=== PATIENT | male | born 1980 | race Caucasian/White ===

== ENCOUNTER 2016-09-29 20:54 | Emergency (ER) | payer MEDICAID ==
[~2016-09-29] VITALS: Ht 182.9 cm; Wt 83.9 kg
--- NOTE | 2016-09-29 21:16 | Emergency Room Report ---
History of Present Illness Time Seen by 2102 Presenting Problem in Triage Pt arrived:Walked Presenting Problem:STARTED WITH A SUPERFICIAL SKIN LESION (BUMP) 2 DAYS AGO TO THE RIGHT KNEE TO SWELLING, REDNESS, TENDERNESS AND DECREASED ROM. 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 N Clinical Suspician of Infection? Y Mental Status: 1 - Regular (Normal Baseline) Sepsis Risk:Low Sepsis Risk Have you (or family members/close friends) recently traveled outside the [place]? N If Yes, where/when: Have you had exposure to infectious disease within the past month? N TB? Other? Specify: Source patient, RN notes reviewed, family, old records Exam Limitations no limitations Comment pt with reddness for a few days and now reddness and effusion rt knee - with no fever or known tick bite and no other jts involved Cardiac Chest Pain Chest pain indicative of cardiac No Timing/Duration this evening Severity moderate ALLERGIES Coded Allergies: MDX - Shellfish (From SHELLFISH (FOOD/DRUG)) (Severe, P-[id number]-[id number]/THROAT 08/15) SHELLFISH (FOOD) (From SHELLFISH (FOOD/DRUG)) (Severe, N-[id number]-QNVD/THROAT 19/02) History Medical History General CAD? No Angina: No LA: No Hypertension? No Hyperlipidemia? No CHF? No DVT? No PE? No COPD? No Asthma? Yes Anemia? No GERD? No Gastric ulcers? No GI Bleed? No Hernia? No Thyroid Problems? No Hypothyroidism? No CVA? No Seizures? No Diabetes? No Renal Insuffiency? No End Stage Renal Disease? No UTI? No Stones? No BPH? No GB Disease: No Asplenia? No Hepatitis? No Sickle Cell Disease? No Arthritis? No Migraines? No Cataracts? No Glaucoma? No MRSA? No HIV? No TB? No Anxiety? No Depression? No Cancer? No Site: N More? No Immunization Hx DT/Tetanus 5-10 Years Ago Surgical Hx Previous Surgery?Y TONSILLECTOMY VASECTOMY REVERSAL VASECTOMY Social History Smoking Hx Smoker: Unknown if Ever Smoked Tobacco: Yes Type N/A Alcohol Alcohol: Yes Drugs none Review of Systems All Other Systems Reviewed and Negative Constitutional denies fever Eyes denies drainage ENT denies: ear pain, epistaxis, throat pain. Respiratory denies cough, denies shortness of breath, denies wheezing Cardiovascular denies chest pain, denies palpitations, denies syncope Gastrointestinal denies abdominal pain, denies diarrhea, denies vomiting Genitourinary denies: dysuria, frequency, hesitancy, hematuria. Musculoskeletal see HPI, denies back pain, joint pain, joint swelling, denies neck pain Skin see HPI, denies rash, other Psychiatric/Neurological denies seizure Physical Exam Vital Signs Vital Signs Date Time Temp Pulse Resp B/P Pulse O2 O2 Flow FiO2 Ox Delivery Rate 09/29 2157 20 09/29 2138 70 12 111/70 97 09/29 2100 98.4 64 12 114/74 97 - WBC >12,000 or <4,000 or 10% bands? 2 or more SIRS Criteria Met? B/P:111/70 MAP:87 Creatinine >2.0? UA output<0.5ml/kg/hr for 2 hrs? Platelet count >100,000? Lactate >2.0mmol/1? INR >1.2 or PTT > than 60 sec? Evidence of Organ Dysfunction? Provider documented clinical suspician of infection? Y Sepsis Criteria Count: 1 Sepsis Risk: Low Sepsis Risk General Appearance no apparent distress Eye Exam - bilateral eye PERRL, bilateral eye EOMI Ear, Nose, Throat normal ENT inspection Neck supple Respiratory Status No: respiratory distress. 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 No Results/Orders Laboratory Tests 09/29/162109: Uric Acid 5.1 09/29/162109: Uric Acid Cancelled, ESR Cancelled, MCH 30.0 09/29/162109: Sodium 143, Potassium 3.5, Chloride 104, Carbon Dioxide 33 H, BUN 10, Creatinine 1.0, Estimated Creat Clear 122, Estimated GFR (MDRD) 85, Glucose 85, Calcium 8.9, Total Bilirubin 0.4, AST 16, ALT 22, Alkaline Phosphatase 80, Total Protein 6.9, Albumin 3.9, Globulin 3.0, Albumin/Globulin Ratio 1.3, WBC 9.1, RBC 4.75, Hgb 14.3, Hct 41.8 L, MCV 88.0, RDW 11.9, Plt Count 229, MPV 7.2 L, Gran % 68.1, Gran # 6.2, Lymphocytes % 19.6, Monocytes % 6.7, Eosinophils % 5.0, Basophils % 0.6, Lymphocytes # 1.8, Monocytes # 0.6, Eosinophils # 0.5 H, Basophils # 0.1, PUBS MCHC 34.1, ESR Pending, Rheumatoid Factor Cancelled, JACOBY Screen Cancelled Current Medication Orders Sig/Carlos Start time Last Medication Dose Route Stop Time Status Admin Sodium Chloride 500 ML .STK-MED ONE 09/29 2154 DC IV Vancomycin HCl 0 .STK-MED ONE 09/29 2154 DC .ROUTE Ketorolac 0 .STK-MED ONE 09/29 2153 DC Tromethamine .ROUTE Ketorolac 30 MG ONCE ONE 09/29 2144 DC 09/29 Tromethamine IV 09/29 Vancomycin HCl 2,000 MG ONCE ONE 09/29 2144 DCr IV 09/29 2145 Sodium Chloride 10 ML PRN PRN 09/29 2114 AC IV 09/30 2102 Orders Procedure Date/time Status SED RATE 09/29 2109 Active KNEE-3 VIEWS-RT 09/30 2103 Active IV SALINE LOCK 09/30 2103 Active URIC ACID 09/30 2103 Complete RHEUMATOID SCREEN/TITER 09/30 2103 Active C-REACTIVE PROTEIN 09/30 2103 Complete COMPLETE METABOLIC PANEL 09/30 2103 Complete CBC WITH AUTO DIFF 09/30 2103 Active ANTINUCLEAR AB 09/30 2103 Active XRAY/CT/US XRAY/CT/US XRAY knee XR interpretation by reviewed by me Xray Results no fracture seen Departure Departure Time of Disposition 2156 Disposition DC Home or Self Care(routine) Clinical Impression Primary Impression: Cellulitis Qualifiers: Site of cellulitis: extremity Site of cellulitis of extremity: lower extremity Laterality: right Qualified Code: L03.115 - Cellulitis of right lower limb Condition STABLE Referrals Valeria PEREZ,Niraj Cruz (Family) Patient Instructions DI for Cellulitis -- Adult Additional Instructions use meds and see pcp for follow up Discharge Counseling Counseled pt/family regarding diagnosis, test results, medications/RX, follow up needs Prescriptions Current Visit Scripts CEPHALEXIN (Keflex 500MG Capsule) 500 MG PO Q8H #30 CAP SULFAMETHOXAZOLE/TRIMETHOPRIM (Sulfamethoxazole-Tmp Ds Tablet) 1 TAB PO BID #20 TAB ED Critical Care Critical Care No at 5709
--- OUTSIDE RECORDS SUMMARY | 2016-09-29 21:18 | External Medical Summary Rpt ---
Author Author , Organization [employer] Address Unknown Phone Unavailable Care Team Providers Care Champagne Maker Name Role Phone YORDY WARREN, Unavailable Unavailable [facility] Un[facility] [place] [facility] Purpose Continuity of Care Document - 05-28-2015 through 2016 Problems Code Diagnosis DOS Provider Status D229 MELANOCYTIC 05-28-2015 [place] [facility] L280 LICHEN 05-28-2015 [place] [facility] Encounters Encounter Start End Date Code Location Performer Type Date OFFICE [address] [place] [facility] 6 6 [facility] JR T NEW 30 SERV MINUTES [facility] N
--- OUTSIDE RECORDS SUMMARY | 2016-09-29 21:18 | External Medical Summary Rpt ---
Author Author , Organization [employer] Address Unknown Phone Unavailable Care Team Providers Care School Photographs Detailer Name Role Phone YORDY WARREN, Unavailable Unavailable [facility] Un[facility] Unavailable [facility] [place] [facility] Purpose Continuity of Care Document - 05-28-2015 through 2016 Problems Code Diagnosis DOS Provider Status D229 MELANOCYTIC 05-28-2015 [place] [facility] L280 LICHEN 05-28-2015 [facility] Encounters Encounter Start End Date Code Location Performer Type Date OFFICE 13745 [facility] 6 6 MEDICAL JR T NEW 30 SERV MINUTES [facility] N
--- OUTSIDE RECORDS SUMMARY | 2016-09-29 21:18 | External Medical Summary Rpt ---
Demographics Preferred Language French Marital Status Unknown Christianity Affiliation Unknown Race Unknown Ethnic Group Unknown Author Author , Organization [employer] Address Unknown Phone Unavailable Purpose Continuity of Care Document - through 2016 Immunization No patient found.
--- OUTSIDE RECORDS SUMMARY | 2016-09-29 21:18 | External Medical Summary Rpt ---
Demographics Preferred Language Welsh Marital Status Unknown Rastafari Affiliation Unknown Race Unknown Ethnic Group Unknown Author Author , Organization [employer] Address Unknown Phone Unavailable Purpose Continuity of Care Document - through 2016 Immunization No patient found.
--- OUTSIDE RECORDS SUMMARY | 2016-09-29 21:18 | External Medical Summary Rpt ---
Author Author [employer] Hwang, [employer] Organization [employer] Address Unknown Phone Unavailable
--- OUTSIDE RECORDS SUMMARY | 2016-09-29 21:18 | External Medical Summary Rpt ---
Author Author , Organization [employer] Address Unknown Phone Unavailable Care Team Providers Care Post Commander Name Role Phone YORDY WARREN, Unavailable Unavailable [facility] Un[facility] Unavailable [facility] [place] [facility] Purpose Continuity of Care Document - 05-28-2015 through 2016 Problems Code Diagnosis DOS Provider Status D229 MELANOCYTIC 05-28-2015 [facility] L280 LICHEN 05-28-2015 [facility] Encounters Encounter Start End Date Code Location Performer Type Date OFFICE [address]4 [facility] 6 6 MEDICAL JR T NEW 30 SERV MINUTES [facility] N
--- OUTSIDE RECORDS SUMMARY | 2016-09-29 21:18 | External Medical Summary Rpt ---
Author Author [employer] Hwnag, [employer] Organization [employer] Address Unknown Phone Unavailable
--- OUTSIDE RECORDS SUMMARY | 2016-09-29 21:18 | External Medical Summary Rpt ---
Author Author , Organization [employer] Address Unknown Phone Unavailable Care Team Providers Care Central Lab Technician Name Role Phone YORDY WARREN, Unavailable Unavailable [facility] Un[facility] Unavailable [facility] [place] [facility] Purpose Continuity of Care Document - 05-28-2015 through 2016 Problems Code Diagnosis DOS Provider Status D229 MELANOCYTIC 05-28-2015 [facility] L280 LICHEN 05-28-2015 [place] [facility] Encounters Encounter Start End Date Code Location Performer Type Date OFFICE [address] [place] [facility] 6 6 [facility] JR T NEW 30 SERV MINUTES [facility] N
[2016-09-29 21:25] LABS: HEMOGLOBIN 14.3 g/dL (14.1-18.0); LYMPH # 1.8 K/mm3 (0.7-4.5); LYMPH % 19.6 % (10-50)
[2016-09-29] MEDS ORDERED: SEPTRA DS 800 M1 TAB PO (21:58)
[2016-09-29] MEDS ORDERED: KEFLEX 500MG.500 MG PO (21:58)
[2016-09-30 02:03] VITALS: BP 108/57
--- NOTE | 2016-09-30 07:23 | RADIOLOGY REPORT PS360 ---
KNEE-3 VIEWS-RT HISTORY: Pain and swelling pain ORDERING PHYSICIAN: Doug Shaw MD PATIENT AGE: 36 years COMPARISON: 02/16/2014 FINDINGS: No fracture or dislocation. No lytic or blastic change. Normal mineralization. No significant arthritic changes evident. Bone island is present over the proximal tibia as before. Prominent soft tissue swelling is present in the prepatellar region IMPRESSION: 1. No acute bony pathology. 2. Prepatellar soft tissue swelling consistent with prepatellar bursitis
[2016-10-01 08:40] LABS: RA Latex Turbid. <10.0 IU/mL (0.0-13.9)
[2016-10-01 16:36] LABS: Antinuclear Antibodies, IFA Negative (.)
[2016-10-02] MEDS ORDERED: KEFLEX 500MG.500 MG PO (09:30)
[2016-10-02] MEDS ORDERED: BACTRIM DS 8001 TA1 PO (09:30)
== END 2016-09-30 02:03 | disposition home or self-care (01) ==
LOC: ER 20:54
PROVIDERS: Emergency Medicine
DX: L03.115 Cellulitis of right lower limb (principal)
CPT/HCPCS: J3370

== ENCOUNTER → 2016-10-06 | Outpatient (CLI) | payer MEDICAID ==
[~2016-10-06] MED LIST: BACTRIM DS 8001 TA1 PO; KEFLEX 500MG.500 MG PO; SEPTRA DS 800 M1 TAB PO
== END ==
LOC: LAB 16:14
DX: L03.115 Cellulitis of right lower limb (principal); M70.41 Prepatellar bursitis, right knee